=== PATIENT | female | born 1980 | race Caucasian/White ===

== ENCOUNTER 2017-04-08 04:33 | Emergency (ER) ==
[2017-04-08] MEDS ORDERED: ZOFRAN 4 MG/2 ML IVP STA (04:42)
[2017-04-08] MEDS ORDERED: SODIUM CHLORIDE 1,000 ML IV STA (04:42)
[2017-04-08 04:44] VITALS: BP 112/72; TEMP 98.5; BMI 20.5
[2017-04-08 04:52] LABS: BASOPHILS % (AUTO) 0.5 % (0.0-3.0); EOSINOPHILS # (AUTO) 0.2 K/ul (0.0-0.7); EOSINOPHILS % (AUTO) 2.7 % (0.0-7.0); HEMOGLOBIN 14.4 g/dl (12.0-16.0); IMMATURE GRANULOCYTE % (AUTO) 0.2 % (0.0-5.0); LYMPHOCYTES # (AUTO) 4.3 K/uL (0.60-3.4); LYMPHOCYTES % (AUTO) 52.1 (10.0-50.0); MEAN CORPUSCULAR HEMOGLOBIN 30.8 pg (27.0-31.0); MEAN CORPUSCULAR HGB CONC 35.1 (31.8-35.4); MEAN CORPUSCULAR VOLUME 87.8 fl (81.0-99.0); MONOCYTES # (AUTO) 0.5 K/uL (0.4-2.0); NEUTROPHILS # (AUTO) 3.2 K/ul (2.0-6.9); NEUTROPHILS % (AUTO) 38.5; PLATELET COUNT 168 10^3/uL (140-440); RED BLOOD COUNT 4.67 10^6/ul (4.20-5.40); WHITE BLOOD COUNT 8.18 K/ul (4.6-10.2)
[2017-04-08 05:08] LABS: SERUM PREGNANCY INTERNAL QC INTERNAL QC VALID
[2017-04-08 05:11] LABS: ALBUMIN 3.7 g/dL (3.4-5.0); ALBUMIN/GLOBULIN RATIO 1.37; ANION GAP 12.8; BILIRUBIN,TOTAL 0.43 mg/dL (0.00-1.20); BUN/CREATININE RATIO 11.9; CALCIUM 8.8 mg/dL (8.2-10.2); CREATININE 0.84 mg/dL (0.60-1.30); POTASSIUM 3.8 mmol/L (3.5-5.10); TOTAL PROTEIN 6.4 g/dL (6.4-8.2)
[2017-04-08] MEDS ORDERED: PROTONIX IV IVP STA (05:11)
--- NOTE | 2017-04-08 05:14 | ED.PDOC ---
General ED Provider: Dr. DURAN ROY-ER Chief Complaint: Nausea/Vomiting Stated Complaint: hunter been vomiting Time Seen by Physician: 04:35 Mode of Arrival: Walk-In Information Source: Patient Exam Limitations: No limitations Primary Care Provider: DURAN ROY Nursing and Triage Documentation Reviewed and Agree: Yes GI Complaint Exam - Vomiting/Diarrhea Complaint/Exam Onset/Duration: 24hrs Symptoms Are: Still present Episodes of Vomiting over last 24 Hours: 6 Initial Severity: Mild Current Severity: Moderate Character of Vomiting: Reports: Non-bilious Aggravating: Reports: None Alleviating: Reports: None Associated Signs and Symptoms: Reports: Cramping Related History: Reports: Similar episode Menses: Regular Recent Positive Test: No Use of Oral Contraceptives: No Use of Depoprovera: No Non-GI Risk Factors: Reports: None Abdominal Findings: Present: None Kussmaul Respirations Present: No Differential Diagnoses: Cholecystitis, Cholelithiasis, Dehydration, Viral Gastroenteritis, UTI Review of Systems - Review Of Systems Constitutional: Reports: No symptoms Eyes: Reports: No symptoms Ears, Nose, Mouth, Throat: Reports: No symptoms Respiratory: Reports: No symptoms Cardiac: Reports: No symptoms GI: Reports: Nausea, Vomiting : Reports: No symptoms Musculoskeletal: Reports: No symptoms Skin: Reports: No symptoms Neurological: Reports: No symptoms Endocrine: Reports: No symptoms Hematologic/Lymphatic: Reports: No symptoms All Other Systems: Reviewed and Negative Past Medical History - Past Medical History Endocrine: Reports: Unknown Cardiovascular: Reports: Unknown Respiratory: Reports: Unknown Hematological: Reports: Unknown Gastrointestinal: Reports: Unknown Genitourinary: Reports: Unknown Neuro/Psych: Reports: Unknown Musculoskeletal: Reports: Unknown Cancer: Reports: Unknown Last Menstrual Period: 3 WEEKS AGO, WAS A SHORT PERIOD, HOME TEST YESTERDAY WAS NEGATIVE - Surgical History General Surgical History: Reports: Unknown - Family History Family History: Reports: Unknown - Social History Smoking Status: Current every day smoker, Heavy tobacco smoker Hx Substance Use: Yes (MARIJUANA OCCASIONALLY) Alcohol Screening: Occasionally Lives: With family - Immunizations Tetanus Shot up to Date: Yes Physical Exam - Physical Exam Appearance: Well-appearing, No pain distress, Well-nourished Eyes: RAISA, EOMI, Conjunctiva clear ENT: Ears normal, Nose normal, Oropharynx normal Neck: Supple Respiratory: Airway patent, Breath sounds clear, Breath sounds equal, Respirations nonlabored Cardiovascular: RRR, Pulses normal, No rub, No murmur GI/: Soft, Nontender, No masses, Bowel sounds normal, No Organomegaly Musculoskeletal: Normal strength, ROM intact, No edema, No calf tenderness Skin: Warm, Dry, Normal color Neurological: Sensation intact, Motor intact, Reflexes intact, Cranial nerves intact, Alert, Oriented Psychiatric: Affect appropriate, Mood appropriate Interpretation - Radiology Interpretation Radiology Interpretation By: Radiologist Radiology Results: Positive Exam Interpreted: CT Scan Re-Evaluation - Re-Evaluation Time of Re-Evaluation: 06:03 Status: Improved Vital Signs Stable: Yes Pain Level: 0 Appearance: NAD Lungs: Clear Skin: Warm and Dry Neuro: Alert and Oriented X3 CV: RRR Critical Care Note - Critical Care Note Total Time (mins): 0 Course - Course Hematology/Chemistry: 04/08/17 04:51 04/08/17 04:51 Orders, Labs, Meds: Lab Review 04/08/17 04/08/17 04:51 05:00 WBC 8.18 RBC 4.67 Hgb 14.4 Hct 41.0 MCV 87.8 MCH 30.8 MCHC 35.1 RDW Coeff of Edy 13.1 Plt Count 168 Immature Gran % (Auto) 0.2 Neut % (Auto) 38.5 Lymph % (Auto) 52.1 H [place] % (Auto) 6.0 Eos % (Auto) 2.7 Baso % (Auto) 0.5 Immature Gran # (Auto) 0.0 Neut # 3.2 Lymph # 4.3 H [place] # 0.5 Eos # 0.2 Baso # 0.0 Sodium 138 Potassium 3.8 Chloride 110 H Carbon Dioxide 19 L Anion Gap 12.8 BUN 10 Creatinine 0.84 Estimated GFR (MDRD) 77.00 BUN/Creatinine Ratio 11.90 Glucose 97 Calcium 8.8 Total Bilirubin 0.43 AST 17 ALT 13 Alkaline Phosphatase 56 Total Protein 6.4 Albumin 3.7 Globulin 2.7 Albumin/Globulin Ratio 1.37 Amylase 118 H Lipase 26 Serum , Qual Negative Urine Color Yellow Urine Clarity Clear Urine pH 7.0 Ur Specific [place] 1.015 Urine Protein Negative Urine Glucose (UA) Negative Urine Ketones Negative Urine Blood Negative Urine Nitrite Negative Urine Bilirubin Negative Urine Urobilinogen 0.2 Ur Leukocyte Esterase Negative Influenza A (Rapid) Negative Influenza B (Rapid) Negative Orders Category Date Time Status ED IV/MEDIPORT/POWERPORT .ONCE EMERGENCY 04/08/17 04:42 Active AMYLASE Stat LAB 04/08/17 04:51 Completed CBC W/ AUTO DIFF Stat LAB 04/08/17 04:51 Completed COMPREHENSIVE METABOLIC PANEL Stat LAB 04/08/17 04:51 Completed LIPASE Stat LAB 04/08/17 04:51 Completed MOLECULAR GROUP A STREP Stat LAB 04/08/17 05:00 Results RAPID FLU A/B Stat LAB 04/08/17 05:00 Completed SERUM Stat LAB 04/08/17 04:51 Completed STREP SCREEN Stat LAB 04/08/17 05:00 Results URINALYSIS C & S IF INDICATED Stat LAB 04/08/17 05:00 Completed 0.9 % Sodium Chloride [Saline Flush] MEDS 04/08/17 04:42 Ordered 1 syr IVF PRN PRN Ondansetron HCl/Pf [Zofran 4 mg/2 ml] MEDS 04/08/17 04:42 Discontinued 4 mg IVP ONCE STA Pantoprazole Sodium [Protonix IV] MEDS 04/08/17 05:11 Discontinued 40 mg IVP ONCE STA Sodium Chloride 0.9% [Sodium Chloride] 1,000 ml MEDS 04/08/17 04:[address] ABDOMEN/PELVIS WO CONTRAST Stat RADS 04/08/17 04:42 Completed Medications Generic Name Dose Route Start Last Admin Trade Name Freq PRN Reason Stop Dose Admin Sodium Chloride 1 syr 04/08/17 04:42 04/08/17 05:04 Saline Flush IVF 1 syr PRN PRN Administration To flush IV Discontinued Medications Generic Name Dose Route Start Last Admin Trade Name Freq PRN Reason Stop Dose Admin Sodium Chloride 1,000 mls @ 1,000 mls/hr 04/08/17 04:42 04/08/17 05:03 Sodium Chloride IV 04/08/17 05:41 1,000 mls/hr BOLUS STA Administration Ondansetron HCl 4 mg 04/08/17 04:42 04/08/17 05:03 Zofran 4 Mg/2 Ml IVP 04/08/17 04:43 4 mg ONCE STA Administration Pantoprazole Sodium 40 mg 04/08/17 05:11 04/08/17 05:17 Protonix Iv IVP 04/08/17 05:12 40 mg ONCE STA Administration Vital Signs: Temp Pulse Resp BP Pulse Ox 04/08/17 04:33 98.5 F 68 20 112/72 100 Departure - Departure Time of Disposition: 06:03 Disposition: HOME SELF-CARE Discharge Problem: Enteritis Instructions: Enteritis (ED), Ovarian Cyst (ED) Condition: Good Pt referred to PMD for follow-up: Yes Additional Instructions: protonix 40mg #30---zofran 4mg q 4hrs prn #4--make appt to see ion exchange operator about ovarian cyst--this is very important---call me if nausea does not resolve Allergies/Adverse Reactions: Allergies cefadroxil [From Duricef] Adverse Reaction (Verified 04/08/17 04:43) Home Medications: Ambulatory Orders Aspirin/Acetaminophen/Caffeine [Excedrin Migraine Caplet] 1 each PO Q6H PRN Disposition Discussed With: Patient, Family
[2017-04-08 05:16] LABS: BILIRUBIN,URINE Negative (NEGATIVE); KETONES,URINE Negative (NEGATIVE); LEUKOCYTE ESTERASE ,URINE Negative (NEGATIVE); NITRITE,URINE Negative (NEGATIVE); PROTEIN,URINE Negative (NEGATIVE); URINE, BLOOD Negative (NEGATIVE)
[2017-04-08 05:19] LABS: ADD URINE MICROSCOPIC NO
[2017-04-08 05:27] LABS: FLU INTERNAL QC INTERNAL QC VALID; RAPID FLU A NEGATIVE (NEGATIVE); RAPID FLU B NEGATIVE (NEGATIVE)
--- NOTE | 2017-04-08 05:53 | CT ---
Exam: CT of the abdomen and pelvis without contrast History: Vomiting Technique: [address] of the abdomen and pelvis without intravascular contrast FINDINGS: The lung bases are clear. No significant liver abnormality. The adrenals, pancreas and sp dhruv are unremarkable. The stomach and hiatus are unremarkable.The gallbladder appears normal. Kidne ys and proximal collecting system are unremarkable. The appendix is normal. Bowel loops demonstrate normal caliber. No inflamatory change seen in the mesentery or retroperitoneum. Vascular structures appear normal by noncontrast CT. Left adnexal cyst measures 4.7 x 3.8 cm. Pelvic genitourinary structures unremarkable otherwise. N ormal pelvic bowel loops. No acute findings of the skeleton. Impression: 1. No inflammatory process, bowel or urinary obstruction is seen. 2. Left adnexal cyst should be further characterized by pelvic ultrasound.
== END 2017-04-08 06:15 | disposition home or self-care (01) ==
LOC: ED 04:33
DX: K52.9 Noninfective gastroenteritis and colitis, unspecified (principal); N83.202 Unspecified ovarian cyst, left side; F17.210 Nicotine dependence, cigarettes, uncomplicated
CPT/HCPCS: 36415; 80053; 81001; 82150; 83690; 84703; 85025; 87651; 87804; 87880; 96360; 96361; 96375; 99283

== ENCOUNTER 2018-04-12 09:32 | Outpatient (CLI) | END 2018-04-12 09:33 | disposition home or self-care (01) | LOC: LAB 09:32 | PROVIDERS: ATTEND Physician Assistant | DX: F34.1 Dysthymic disorder (principal); F51.01 Primary insomnia; G43.109 Migraine with aura, not intractable, without status migrainosus; Z72.0 Tobacco use | CPT/HCPCS: 36415; 80053; 80061; 84443; 85025 ==

== ENCOUNTER 2018-06-13 16:03 | Outpatient (CLI) | END 2018-06-13 16:04 | disposition home or self-care (01) | LOC: LAB 16:03 | PROVIDERS: ATTEND Physician Assistant | DX: E03.9 Hypothyroidism, unspecified (principal) | CPT/HCPCS: 36415; 84443 ==

== ENCOUNTER 2018-11-17 08:29 | Outpatient (RCR) ==
--- NOTE | 2018-11-18 12:52 | RS.OPPTEV2 ---
Date of Note: 11/17/18 Visit #: 1 Number of visits approved by Insurance: pending Date of Evaluation: 11/17/18 Payer Source: Medicaid ([employer]) Surgery Performed?: No Treatment Diagnosis: Cervical pain History of Condition/Mechanism of Injury:: pt reports long hx of cervical pain off and on. States pain has been getting progressively worse recently. Prior Level of Function.....Patient was independent with: ADL's, Self Care, Ambulation/Mobility, Community Integration/Access Level of Function: pt does not currently work outside the home. Functional Limitations: Sleep, ADL's, Reaching, Pushing, Pulling, Lifting, Carrying Current Subjective/complaints:: pt states that she has had increased pain and is affecting her sleep. Treatment Side (optional): N/A *Precautions: LATEX ALLERGY Medical History Medical History: Unremarkable Smoking Status: Current every day smoker Diagnostic Testing/Imaging:: Xray of cervical spine on 10/31/18: straightening of the cervical spine with no acute compression fx or subluxation Hx Home Medications: quetiapine fumerate, levothyroxine Patient's Goals: decrease neck pain Pain Assessment - Pain Description Pain Location: cervical spine and medial border of L scapula Pain Description: Aching Current Pain Intensity: 4 Worst Pain Intensity: 8 Functional Outcome Measure UE Functional Index: 14 - G Codes & Severity Modifier G Codes & Modifier: n/a Source of G Code score: n/a Observation - Observation Posture: Forward Head, Rounded Shoulders, Increased Thoracic Kyphosis, Decreased Cervical Lordosis Handedness: Right Gait - Gait Pattern General Gait Pattern Observation: No Deviations/Normal General Range of Motion: BUE and BLE ROM WFL's Muscle Strength: BUE shld flex 4/5, pt with some mild pain L medial border of scapula, elbow flex/ext 4+/5. BLE 5/5 - ROM Cervical Spine Range of Motion Limitations: Soft Tissue Tightness, Muscle Weakness, Pain Comments: pt demonstrates Cervical ROM WFL's with increased pain with cervical ext, L rotation and R side bending. - Strength Cervical Extension: 4- Good- Cervical Flexion: 4- Good- Cervical Lateral Flexion: 4- Good- Cervical Rotation: 4- Good- - Special Tests Foraminal Distraction: Negative Foraminal Compression: Negative Left, Negative Right Thoracic Outlet Test: Negative Left, Negative Right Palpation Palpation Findings: Tenderness, Trigger Point, Muscle Guarding Comments:: pt with tenderness and muscle guarding B upper trap R worse than L, and medial border of L scapula with trigger points noted in L upper trap as well as medial border of L scapula. Sensation - Sensation Right Upper Extremity: Intact/Normal Left Upper Extremity: Intact/Normal Right Lower Extremity: Intact/Normal Left Lower Extremity: Intact/Normal Balance - Sitting Balance Static Sitting Balance: Normal Dynamic Sitting Balance: Normal - Standing Balance Static Standing Balance: Normal Dynamic Standing Balance: Normal - Treatment Modality: Ultrasound Parameters/Method Applied: 1.5w/cm2 x 7 mins Treatment Area: L medial border of scapula as well as L upper trap. Patient Position: Sitting - Heat/Cryotherapy Treatment: Hot Pack Comments:: cervical spine Interventions - Exercise/Activities/Manual Therapy Exercises/Activities: pt performed chin tucks, corner stretch, upper trap stretch, scapular retraction with red theraband. Manual Therapy: n/a HOME EXERCISE PROGRAM: pt given written HEP including cervical retraction, upper trap stretch, levator stretch, corner stretch, scapular retraction with red tband. - Charges Timed Code Treatment Minutes: 47 Total Treatment Time: 58 Procedures billed for this date of service:: irene steven, u/s, hot pack EVALUATION COMPLEXITY LEVEL EVALUATION COMPLEXITY LEVEL: HISTORY: Low, EXAM OF BODY SYSTEMS: Low, CLINICAL PRESENTATION: Low, CLINICAL DECISION MAKING: Low Assessment Assessment: pt presents with neck pain as well as muscle guarding and trigger points noted in L upper trap and L medial scapula Patient Education: Home Exercise Program, Education of Plan of Care Rehab Potential: Good Short Term Goals Goal #1: pt independent with initial HEP Goal to be met by: 12/01/18 Goal #2: pt with decreased muscle guarding in upper traps and medial L scapula Goal to be met by: 12/01/18 Goal #3: pt with decreased pain in cervical spine Goal to be met by: 12/01/18 Masonry Teacher Goals Goal #1: pt report ability to return to normal house hold activies Goal to be met by: 12/15/18 Goal #2: pt with cervical ROM WFL's without pain Goal to be met by: 12/15/18 Goal #3: Improve B shld strength 4+/5 Goal to be met by: 12/15/18 Plan - Treatment to be Provided Procedures: Therapeutic Exercises, Therapeutic Activity, Neuromuscular Rehab, Manual Therapy, Massage, Patient Education Modalities: Electrical Stimulation, Ultrasound/Phonophoresis, Class IV Laser, Cryotherapy, Hot Packs, Mechanical Traction - Treatment Plan Frequency: 2 X week Duration: 4 weeks Dates of Senior Care Goals: 12/15/18 Expiration date of current Insurance Approval:: pending - Treatment Code (1) Cervical pain Code(s): M54.2 - CERVICALGIA (2) Muscle tightness Code(s): M62.89 - OTHER SPECIFIED DISORDERS OF MUSCLE (3) Muscle weakness Code(s): M62.81 - MUSCLE WEAKNESS (GENERALIZED)
== END 2018-11-21 23:59 | disposition short-term general hospital (02) ==
PROVIDERS: ATTEND Nurse Practitioner
DX: M54.2 Cervicalgia (principal)

== ENCOUNTER 2018-11-25 11:56 | Outpatient (CLI) | END 2018-11-25 11:57 | disposition home or self-care (01) | LOC: LAB 11:56 | PROVIDERS: ATTEND Nurse Practitioner | DX: E03.9 Hypothyroidism, unspecified (principal) | CPT/HCPCS: 36415; 84443 ==

== ENCOUNTER 2018-12-12 13:00 | Outpatient (RCR) ==
--- NOTE | 2018-11-23 16:13 | RS.OPPTDN ---
Subjective Date of Note: 11/23/18 Visit #: 2 Number of visits approved by Insurance: Pending Date of Evaluation: 11/17/18 Payer Source: Medicaid ([facility] [place]) Treatment Diagnosis: Cervical pain Current Subjective/complaints:: Reports soreness for several days following last treatment. States her neck pain is slightly better today than it was on first visit. *Precautions: LATEX ALLERGY Pain Assessment - Pain Description Pain Location: neck and upper back, right > left Pain Description: Tightness, Aching Current Pain Intensity: 5/10 - Treatment Modality: Electrical Stim Unattended Parameters/Method Applied: [id number] HVGC to 155p.v. with 4 small pads to the bilateral cervical paraspinals and trap trigger points with HP prior to EX. Patient Position: Supine - Heat/Cryotherapy Treatment: Hot Pack (with Estim ) Interventions - Exercise/Activities/Manual Therapy Exercises/Activities: Assisted lateral cervical flexion stretch. Scap retraction and elevation/depression. Isometric cervical retraction. Mid scap stretch with UE across midline. Red theraband scap retraction. At wall, wall angels, isometric cervical retraction and isometric bilateral shoulder extension. Total minutes of Exercise: 18mins Manual Therapy: Trigger point release along upper traps and mid scap border. Total minutes of Manual Therapy: 10mins HOME EXERCISE PROGRAM: pt given written HEP including cervical retraction, upper trap stretch, levator stretch, corner stretch, scapular retraction with red tband. - Charges Timed Code Treatment Minutes: 28mins Total Treatment Time: 50mins Procedures billed for this date of service:: HP, Estim unattended, MT, EX Assessment: Patient attentive to all patient education and appears to be working on HEP. Patient Education: Body/Joint mechanics, Home Exercise Program Patient demonstrates compliance with HEP?: Yes Short Term Goals Goal #1: pt independent with initial HEP Goal to be met by: 12/01/18 Progress towards Goal:: Progressing Goal #2: pt with decreased muscle guarding in upper traps and medial L scapula Goal to be met by: 12/01/18 Progress towards Goal:: Progressing Goal #3: pt with decreased pain in cervical spine Goal to be met by: 12/01/18 Progress towards Goal:: Progressing Care Home Goals Goal #1: pt report ability to return to normal house hold activies Goal to be met by: 12/15/18 Goal #2: pt with cervical ROM WFL's without pain Goal to be met by: 12/15/18 Goal #3: Improve B shld strength 4+/5 Goal to be met by: 12/15/18 Plan Dates of Cut Out Stitcher Goals: 12/15/18 Expiration date of current Insurance Approval:: 12/15/18 PLAN: Continue modalities and progress exercise to reduce pain and increase functional activity level.
--- NOTE | 2018-11-25 12:11 | RS.OPPTDN ---
Subjective Date of Note: 11/25/18 Visit #: 3 Number of visits approved by Insurance: pending Date of Evaluation: 11/17/18 Payer Source: Medicaid ([facility]) Treatment Diagnosis: Cervical pain Current Subjective/complaints:: Patient reports improvement in pain and muscle tension with last treatment of Estim. *Precautions: LATEX ALLERGY Pain Assessment - Pain Description Pain Location: right neck and upper back Pain Description: Tightness, Aching Current Pain Intensity: 3/10 Other Comments regarding Pain:: Reports mild discomfort and increased flexibility following treatment. - Treatment Modality: Electrical Stim Unattended Parameters/Method Applied: [id number] HVGC to 150p.v. to the bilateral cervical paraspinals and trap trigger points with HP. Patient Position: Sitting - Heat/Cryotherapy Treatment: Hot Pack (with Estim ) Interventions - Exercise/Activities/Manual Therapy Exercises/Activities: Assisted lateral cervical flexion, levator scap and rotation stretches. Scap retraction and elevation/depression. Isometric cervical retraction. Isometric shoulder extension. Mid scap stretch with UE across midline. Wall angels for postural correction. Total minutes of Exercise: 9mins Manual Therapy: Myofascial release, soft tissue work, and trigger point release to the bilateral cervical paraspinals, upper traps and mid scap borders. Total minutes of Manual Therapy: 20mins HOME EXERCISE PROGRAM: pt given written HEP including cervical retraction, upper trap stretch, levator stretch, corner stretch, scapular retraction with red tband. - Charges Timed Code Treatment Minutes: 29mins Total Treatment Time: 49mins Procedures billed for this date of service:: HP, Estim unattended, MT, EX Assessment: Patient responding to treatment with reports of reduction in pain and increase in flexibility. Patient Education: Education of diagnosis, Body/Joint mechanics, Home Exercise Program, Home Safety Patient demonstrates compliance with HEP?: Yes Short Term Goals Goal #1: pt independent with initial HEP Goal to be met by: 12/01/18 Progress towards Goal:: Progressing Goal #2: pt with decreased muscle guarding in upper traps and medial L scapula Goal to be met by: 12/01/18 Progress towards Goal:: Progressing Goal #3: pt with decreased pain in cervical spine Goal to be met by: 12/01/18 Progress towards Goal:: Progressing Copper Plater Goals Goal #1: pt report ability to return to normal house hold activies Goal to be met by: 12/15/18 Goal #2: pt with cervical ROM WFL's without pain Goal to be met by: 12/15/18 Goal #3: Improve B shld strength 4+/5 Goal to be met by: 12/15/18 Plan Dates of Copper Plater Goals: 12/15/18 Expiration date of current Insurance Approval:: 12/15/18 PLAN: Continue modalities, manual therapy, and exercise to reduce pain and increase patients functional activity level.
--- NOTE | 2018-11-29 15:22 | RS.OPPTDN ---
Subjective Date of Note: 11/29/18 Visit #: 4 Number of visits approved by Insurance: Requested 8, pending Date of Evaluation: 11/17/18 Payer Source: Medicaid ([facility]) Treatment Diagnosis: Cervical pain Current Subjective/complaints:: Patient says that she was playing with her nieces yesterday and the R side of her neck is a little stiff. She says it isn' t really hurting more. She reports treatment continues to be helping. *Precautions: LATEX ALLERGY - Treatment Modality: Electrical Stim Unattended Parameters/Method Applied: 4 small pads L side controlled seperately from R. L @ 135, R @ 150 pk volts x 20 mins. Patient Position: Supine - Heat/Cryotherapy Treatment: Hot Pack (cervical) Interventions - Exercise/Activities/Manual Therapy Exercises/Activities: Assisted lateral cervical flexion, levator scap and rotation stretches. Scap retraction and elevation/depression. Isometric cervical retraction 2x5. Isometric shoulder extension. Reviewed HEP and postural mechanics. Total minutes of Exercise: 8 Manual Therapy: Myofascial release, soft tissue work, and trigger point release to the bilateral cervical paraspinals with focus to the R, upper traps and mid scap borders. Total minutes of Manual Therapy: 13 HOME EXERCISE PROGRAM: pt given written HEP including cervical retraction, upper trap stretch, levator stretch, corner stretch, scapular retraction with red tband. - Charges Timed Code Treatment Minutes: 21 Total Treatment Time: 41 Procedures billed for this date of service:: hp, estim (un), MT, EX Assessment: Patient demo moderate muscle guarding to bilateral UT and mid scapular region, which is more prevelent to the R. She presents with increased stiffness to this area due to recently caring for 2 and 3 year old nieces. She admits improved flexibility and pain following todays session. Patient Education: Education of diagnosis, Body/Joint mechanics Patient demonstrates compliance with HEP?: Yes Short Term Goals Goal #1: pt independent with initial HEP Goal to be met by: 12/01/18 Progress towards Goal:: Progressing Goal #2: pt with decreased muscle guarding in upper traps and medial L scapula Goal to be met by: 12/01/18 Progress towards Goal:: Progressing Goal #3: pt with decreased pain in cervical spine Goal to be met by: 12/01/18 Progress towards Goal:: Progressing Snf Goals Goal #1: pt report ability to return to normal house hold activies Goal to be met by: 12/15/18 Goal #2: pt with cervical ROM WFL's without pain Goal to be met by: 12/15/18 Goal #3: Improve B shld strength 4+/5 Goal to be met by: 12/15/18 Plan Dates of Snf Goals: 12/15/18 Expiration date of current Insurance Approval:: 12/15/18 PLAN: Patient to continue for modalities and therex to improve ROM and pain for cspine and UT.
--- NOTE | 2018-12-01 12:10 | RS.OPPTDN ---
Subjective Date of Note: 12/01/18 Visit #: 5 Number of visits approved by Insurance: pending Date of Evaluation: 11/17/18 Payer Source: Medicaid ([facility]) Treatment Diagnosis: Cervical pain Current Subjective/complaints:: Patient reports neck pain is significantly better. States she has tightness on the right side and occational popping with overhead reaching exercises. *Precautions: LATEX ALLERGY Pain Assessment - Pain Description Pain Location: Right neck and upper trap Pain Description: Tightness Current Pain Intensity: mild - Treatment Modality: Electrical Stim Unattended Parameters/Method Applied: [id number] HVGC to 120p.v. with 4 small pads to the bilateral cervical paraspinals and upper traps with HP prior to EX. Patient Position: Supine - Heat/Cryotherapy Treatment: Hot Pack (with Estim ) Interventions - Exercise/Activities/Manual Therapy Exercises/Activities: Assisted lateral cervical flexion, levator scap and rotation stretches. Scap retraction and elevation/depression. Isometric cervical retraction. Isometric shoulder extension. Wand overhead flexion. Green theraband scap retraction. Ball on the wall. Doorway stretching, 3 position. Postural correction isometrics at wall. Wall angels. Total minutes of Exercise: 23mins Manual Therapy: NA HOME EXERCISE PROGRAM: pt given written HEP including cervical retraction, upper trap stretch, levator stretch, corner stretch, scapular retraction with red tband. Wall angels, Doorway stretxch 3 position. - Charges Timed Code Treatment Minutes: 23mins Total Treatment Time: 46mins Procedures billed for this date of service:: HP, Estim unattended, EX2 Assessment: Patient has responded well to treatment with reports of reduction in pain and an increase in postural strengthening exercises. Patient Education: Body/Joint mechanics, Home Exercise Program Patient demonstrates compliance with HEP?: Yes Short Term Goals Goal #1: pt independent with initial HEP Goal to be met by: 12/01/18 Progress towards Goal:: Met Goal #2: pt with decreased muscle guarding in upper traps and medial L scapula Goal to be met by: 12/01/18 Progress towards Goal:: Met Goal #3: pt with decreased pain in cervical spine Goal to be met by: 12/01/18 Progress towards Goal:: Met Care Home Goals Goal #1: pt report ability to return to normal house hold activies Goal to be met by: 12/15/18 Progress towards goal: Progressing Goal #2: pt with cervical ROM WFL's without pain Goal to be met by: 12/15/18 Progress towards goal: Partially Met Goal #3: Improve B shld strength 4+/5 Goal to be met by: 12/15/18 Progress towards goal: Partially Met Plan Dates of [employer] Plant [employer] Goals: 12/15/18 Expiration date of current Insurance Approval:: 12/15/18 PLAN: Progress postural correction and strengthening exercise to return patient to PLOF.
--- NOTE | 2018-12-06 10:20 | RS.CXNS ---
Date of scheduled appointment: 12/06/18 Type: Cancel (Patient called to cancel appointment stating she is sick. She reschedules for later this week.)
--- NOTE | 2018-12-12 14:18 | RS.OPPTDN ---
Subjective Date of Note: 12/12/18 Visit #: 6 Number of visits approved by Insurance: Pending Date of Evaluation: 11/17/18 Payer Source: Medicaid ([facility]) Treatment Diagnosis: Cervical pain Current Subjective/complaints:: Reports no cervical pain currently ,just tightness today.She reports no difficulty with the HEP.She was sick last week , but pleased that her neck pain has not elevated.She agrees with D/C today. *Precautions: LATEX ALLERGY Pain Assessment - Pain Description Pain Location: cervical Pain Description: Tightness Current Pain Intensity: 0 - Treatment Modality: Electrical Stim Unattended Parameters/Method Applied: 20 mins. ,2 large electrodes on upper traps.,setting @ 200 pv. Patient Position: Supine - Heat/Cryotherapy Treatment: Hot Pack (concurrent with e-stim) - Traction Treatment Method: Mechanical (Tolerates well.), Intermittent, Cervical Patient Position: Supine Amount of Force Applied: 13 Hold Time: 30 secs. Rest Time: 5 secs Duration of treatment: 10 mins. Interventions - Exercise/Activities/Manual Therapy Exercises/Activities: HEP review only today while receiving modalities. Total minutes of Exercise: 0 Manual Therapy: NA Total minutes of Manual Therapy: 0 HOME EXERCISE PROGRAM: pt given written HEP including cervical retraction, upper trap stretch, levator stretch, corner stretch, scapular retraction with red tband. Wall angels, Doorway stretxch 3 position. - Charges Timed Code Treatment Minutes: 0 Total Treatment Time: 30 Procedures billed for this date of service:: hp,e-stim,traction Assessment: Patient met all STG's,met 2/3 LTG's.She currently has no pain ,good understanding of HEP. Patient Education: Education of diagnosis, Body/Joint mechanics, Home Exercise Program, Home Safety, Activity Modification, Education of Plan of Care Patient demonstrates compliance with HEP?: Yes Short Term Goals Goal #1: pt independent with initial HEP Goal to be met by: 12/01/18 Progress towards Goal:: Met Goal #2: pt with decreased muscle guarding in upper traps and medial L scapula Goal to be met by: 12/01/18 Progress towards Goal:: Met Goal #3: pt with decreased pain in cervical spine Goal to be met by: 12/01/18 Progress towards Goal:: Met Jail Goals Goal #1: pt report ability to return to normal house hold activies Goal to be met by: 12/15/18 Progress towards goal: Met Goal #2: pt with cervical ROM WFL's without pain Goal to be met by: 12/15/18 Progress towards goal: Met Goal #3: Improve B shld strength 4+/5 Goal to be met by: 12/15/18 Progress towards goal: Partially Met 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
--- NOTE | 2018-12-12 14:19 | RS.QUICKDC ---
Discharge from PT Date of Discharge: 12/12/18 Number of Visits: 6 Reason for Discharge: Good progress,all STG's met,2/3 LTG's met.
== END 2018-12-22 23:59 ==
PROVIDERS: ATTEND Nurse Practitioner
DX: M54.2 Cervicalgia (principal)

== ENCOUNTER 2018-12-28 09:46 | Outpatient (CLI) | END 2018-12-28 09:47 | disposition home or self-care (01) | LOC: LAB 09:46 | PROVIDERS: ATTEND Nurse Practitioner | DX: E03.9 Hypothyroidism, unspecified (principal) | CPT/HCPCS: 36415; 84443 ==

== ENCOUNTER 2019-05-01 10:22 | Outpatient (CLI) | END 2019-05-01 10:23 | disposition home or self-care (01) | LOC: LAB 10:22 | PROVIDERS: ATTEND Nurse Practitioner | DX: E03.9 Hypothyroidism, unspecified (principal) | CPT/HCPCS: 36415; 84443 ==